=== PATIENT | male | born 2000 | race Caucasian/White ===

== ENCOUNTER 2018-01-03 10:52 | Emergency (ER) | payer OTHER ==
[2018-01-03 12:15] VITALS: BP 108/66
--- NOTE | 2018-01-03 13:09 | RAD ---
HISTORY: injury, pain near sternal notch COMPARISONS: None VIEWS: 2, lateral and frontal oblique views of the sternum FINDINGS: BONE DENSITY: Normal. BONES: There is no displaced fracture. JOINTS: There is no arthropathy. ALIGNMENT: There is no dislocation. SOFT TISSUES: Unremarkable. OTHER FINDINGS: None. IMPRESSION: NO ACUTE OSSEOUS INJURY. IF SYMPTOMS PERSIST, RECOMMEND REPEAT IMAGING.
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
== END 2018-01-03 13:19 | disposition home or self-care (01) ==
LOC: UCCORT 10:52
DX: S20.219A Contusion of unspecified front wall of thorax, initial encounter (principal); W22.8XXA Striking against or struck by other objects, initial encounter; Y93.9 Activity, unspecified; Y92.9 Unspecified place or not applicable
CPT/HCPCS: 71120; 99211; G0463